=== PATIENT | male | born 1980 | race African-American/Black ===

== ENCOUNTER 2016-11-28 14:16 | Emergency (ER) | payer OTHER | END 2016-11-28 14:26 | disposition home or self-care (01) | LOC: ER1 14:16 | DX: H10.9 Unspecified conjunctivitis (principal); I10 Essential (primary) hypertension; F17.210 Nicotine dependence, cigarettes, uncomplicated; Z79.899 Other long term (current) drug therapy | CPT/HCPCS: 99283 ==

== ENCOUNTER 2020-07-25 19:41 | Emergency (ER) | payer OTHER ==
[~2020-07-25 19:41] MED LIST: CEFUROXIME500 MG PO; CLEOCIN HCL300 MG PO; IBUPROFEN800 MG PO; MEDROL4 MG PO; NAPROSYN500 MG PO; PROVENTIL HFA6.7 GM INH; TESSALON PERLE100 MG PO; Viscous Lidocaine2% PO
[2020-07-26] MEDS ORDERED: G (01:17)
[2020-07-26] MEDS ORDERED: PEROXIDE SORE236 ML MM (01:17)
[2020-07-26] MEDS ORDERED: ORAJEL 3X MOUT5.1 GM MM (01:17)
== END 2020-07-26 03:25 | disposition home or self-care (01) ==
LOC: ER1 19:41
DX: K14.8 Other diseases of tongue (principal); K02.9 Dental caries, unspecified; I10 Essential (primary) hypertension; F17.210 Nicotine dependence, cigarettes, uncomplicated
CPT/HCPCS: 99282

== ENCOUNTER → 2020-09-21 | Outpatient (CLI) | payer OTHER ==
[~2020-09-21] MED LIST changes: +G; +ORAJEL 3X MOUT5.1 GM MM; +PEROXIDE SORE236 ML MM
== END ==
LOC: RAD 17:36
DX: R05 Cough (principal); J98.09 Other diseases of bronchus, not elsewhere classified
CPT/HCPCS: 71046

== ENCOUNTER 2021-05-09 17:47 | Emergency (ER) | payer SELFPAY ==
[2021-05-09] MEDS ORDERED: IBUPROFEN600 MG PO (19:58)
[2021-05-09] MEDS ORDERED: BACITRACIN3.5 GM TOP (19:58)
== END 2021-05-09 20:18 | disposition home or self-care (01) ==
LOC: ER1 17:47
DX: T20.10XA Burn of first degree of head, face, and neck, unspecified site, initial encounter (principal); X08.8XXA Exposure to other specified smoke, fire and flames, initial encounter
CPT/HCPCS: 96372; 99283; J1885

== ENCOUNTER 2022-03-09 07:33 | Emergency (ER) | payer OTHER ==
[~2022-03-09 07:33] MED LIST changes: +BACITRACIN3.5 GM TOP; +IBUPROFEN600 MG PO
[2022-03-09 08:35] LABS: HEMOGLOBIN 14.6 gm/dl (14.0-17.5); RED BLOOD COUNT 5.48 M/UL (4.20-5.50); WHITE BLOOD COUNT 7.3 K/UL (4.5-11.0)
[2022-03-09 08:49] LABS: BUN/CREATININE RATIO 14 (0-10)
== END 2022-03-09 12:00 | disposition home or self-care (01) ==
LOC: ER1 07:33
PROVIDERS: Emergency Medicine
DX: K40.90 Unilateral inguinal hernia, without obstruction or gangrene, not specified as recurrent (principal)
CPT/HCPCS: 80053; 82550; 82553; 83690; 84484; 85025; 99284; Q9967